=== PATIENT | female | born 1990 | race Two or more races ===

== ENCOUNTER 2018-03-09 23:02 | Emergency (ER) | payer OTHER ==
[~2018-03-09] VITALS: Ht 167.6 cm; Wt 68.0 kg
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
--- NOTE | 2018-03-09 23:03 | NUR ---
ER MD SAPP AT BEDSIDE FOR EVAL
[2018-03-09] MEDS ORDERED: ACETAMINOPHEN ES 500 MG TABLET ONE (23:26)
[2018-03-09] MEDS ORDERED: ACETAMINOPHEN ES 500 MG TABLET PO ONE (23:30)
[2018-03-10] MEDS ORDERED: LORAZEPAM 1 MG TABLET ONE (01:11)
[2018-03-10 01:21] VITALS: BP 146/79
[2018-03-10] MEDS ORDERED: LORAZEPAM 1 MG TABLET PO ONE (01:30)
== END 2018-03-10 01:27 | disposition home or self-care (01) ==
LOC: ER 23:04
DX: S06.0X0A Concussion without loss of consciousness, initial encounter (principal); S13.4XXA Sprain of ligaments of cervical spine, initial encounter; S90.02XA Contusion of left ankle, initial encounter; F41.9 Anxiety disorder, unspecified; V49.59XA Passenger injured in collision with other motor vehicles in traffic accident, initial encounter; Y93.89 Activity, other specified; Y92.413 State road as the place of occurrence of the external cause; Y99.8 Other external cause status
CPT/HCPCS: 70450-TC; 73610-TC; 84703-TC; A4606; Z7610